=== PATIENT | male | born 1995 | race African-American/Black ===

== ENCOUNTER 2018-07-03 20:56 | Emergency (ER) | payer MEDICARE ==
[~2018-07-03] VITALS: Ht 170.2 cm; Wt 71.0 kg
[2018-07-03 21:20] VITALS: BP 126/71
== END 2018-07-04 00:13 | disposition left against medical advice (07) ==
LOC: ER 20:56
DX: Z53.21 Procedure and treatment not carried out due to patient leaving prior to being seen by health care provider (principal); J45.909 Unspecified asthma, uncomplicated